=== PATIENT | male | born 1990 | race African-American/Black ===

== ENCOUNTER 2018-04-06 07:06 | Emergency (ER) | payer BC, SELFPAY ==
[2018-04-06 07:32] LABS: Bilirubin Negative (Negative); Blood, Urine Moderate (Negative); Clarity Clear (Clear); Glucose, Urine (Dipstick) Negative (Negative); Leukocyte Negative (Negative); Nitrite Negative (Negative); Protein, Urine (Dipstick) Negative (Neg-Trace); pH, Urine 5.5 (5.0-9.0)
[2018-04-06 07:34] LABS: Specific Gravity, Urine 1.026 (1.002-1.036)
[2018-04-06 07:39] LABS: Bacteria/HPF Rare-Few HPF (None Seen); Squamous Epithelial 0-3 HPF (0-3); WBC/HPF 0-3 HPF (0-3)
== END 2018-04-06 07:40 | disposition home or self-care (01) ==
LOC: MADERS 07:06
DX: N39.0 Urinary tract infection, site not specified (principal)
CPT/HCPCS: 81003; 81015; 87086; 99283

== ENCOUNTER 2019-10-06 13:37 | Emergency (ER) | payer BC ==
--- NOTE | 2019-10-06 14:17 | RAD ---
EXAM: 3 views of the left hand COMPARISON: None HISTORY: Hand pain FINDINGS: 3 views of the hand shows minimally displaced fractures of the distal max of the index fing er and middle finger metacarpals. There is also a minimally displaced transverse fracture of the midportion of the ring finger metacarpal. No degenerative changes are seen. No soft tissue swelling i s present. IMPRESSION: Index, middle, and ring finger metacarpal fractures
--- NOTE | 2019-10-06 14:18 | RAD ---
EXAM: 4 views of the left wrist HISTORY: Wrist pain COMPARISON: None FINDINGS: 4 views of the left wrist shows no evidence of acute fracture or dislocation. No soft tissu e swelling is seen. No degenerative changes are present. IMPRESSION: No evidence of acute osseous abnormality.
[2019-10-06] MEDS ORDERED: Ibuprofen 800 MG TAB ONE (14:45)
[2019-10-06] MEDS ORDERED: Acetaminophen 500 MG TAB ONE (14:45)
== END 2019-10-06 15:20 | disposition home or self-care (01) ==
LOC: MADERS 13:37
DX: S62.661A Nondisplaced fracture of distal phalanx of left index finger, initial encounter for closed fracture (principal); S62.663A Nondisplaced fracture of distal phalanx of left middle finger, initial encounter for closed fracture; S62.655A Nondisplaced fracture of middle phalanx of left ring finger, initial encounter for closed fracture; W23.0XXA Caught, crushed, jammed, or pinched between moving objects, initial encounter; Y92.812 Truck as the place of occurrence of the external cause; Y99.0 Civilian activity done for income or pay
CPT/HCPCS: 29125

== ENCOUNTER 2020-03-08 14:52 | Emergency (ER) | payer BC ==
--- NOTE | 2020-03-08 15:39 | RAD ---
CHEST 1 VIEW: HISTORY: Chest pain. FINDINGS: Heart size is normal. Monitor leads overlie the chest. No confluent pneumonia, overt edema, or pleu ral effusion. IMPRESSION: No significant acute intrathoracic disease. POS: [facility]
[2020-03-08 15:57] LABS: #Basophils 0.1 thou/uL (0.0-0.2); #Monocytes 0.9 thou/uL (0.11-0.59); #Neutrophils 8.7 thou/uL (1.40-6.50); %Basophils 0.5 % (0.0-1.0); %Eosinophils 0.3 % (0.0-10.0); %Lymphocytes 17.1 % (21.0-51.0); %Monocytes 7.8 % (0.0-10.0); %Neutrophils 74.3 % (42.0-75.0); Hemoglobin 13.2 g/dL (14.0-18.0); Mean Corpuscular HGB CONC 31.4 g/dL (32.0-36.0); Mean Corpuscular Hemoglobin 27.4 pg (27.0-31.0); Mean Corpuscular Volume 87.4 fL (78.0-98.0); Mean Platelet Volume 6.7 fL (7.4-10.4); Platelet Count 303 thou/uL (130-400); RBC Distribution Width 11.5 % (11.5-14.5); White Blood Cell (WBC) Count 11.7 thou/uL (4.8-10.8)
[2020-03-08 16:12] LABS: ALT (SGPT) 9 U/L (8-55); AST (SGOT) 12 U/L (5-34); Albumin 4.3 g/dL (3.5-5.0); Alkaline Phosphatase 57 U/L (40-110); Anion Gap 15 mmol/L (10-20); BUN (Urea Nitrogen) 15 mg/dL (8.9-20.6); Bilirubin, Total 2.8 mg/dL (0.2-1.2); CK (CPK) 93 U/L (30-200); Calc. Creatinine Clearance 0 mL/min (70-130); Calcium 9.1 mg/dL (7.8-10.44); Carbon Dioxide 24 mmol/L (22-29); Chloride 104 mmol/L (98-107); Estimated GFR-MDRD Greater than 90; Globulin 3.3 g/dL (2.4-3.5); Glucose 82 mg/dL (70-105); Potassium 3.5 mmol/L (3.5-5.1); Protein, Total 7.6 g/dL (6.0-8.3); Sodium 139 mmol/L (136-145)
== END 2020-03-08 16:34 | disposition home or self-care (01) ==
LOC: MADERS 14:52
DX: F41.9 Anxiety disorder, unspecified (principal); F43.0 Acute stress reaction; R07.89 Other chest pain; R63.0 Anorexia
CPT/HCPCS: 36415; 71045; 80053; 82550; 84484; 85025; 93005; 94760

== ENCOUNTER 2020-08-26 16:27 | Emergency (ER) | payer BC ==
--- NOTE | 2020-08-26 17:00 | CT ---
CT Stone Protocol 08/26/2020 4:36 PM HISTORY: Intermittent left lower quadrant pain with radiation of pain to groin. COMPARISON: None. Technique: Multiple contiguous axial CT images are obtained through the abdomen and pelvis without IV contrast. Coronal reformats are provided. FINDINGS: This examination is limited for the evaluation of solid organs and vascular structures due to the lac k of intravenous contrast. Lower Chest: Lung bases are clear. Liver: Grossly normal non-enhanced CT appearance. Gallbladder: Within normal limits for CT imaging. Pancreas: Grossly normal nonenhanced CT appearance. Spleen: Grossly normal nonenhanced CT appearance. Adrenals: Grossly normal nonenhanced CT appearance. Kidneys and ureters: No renal or ureteral calculi are seen bilaterally. Mild increased density is see n in the region of the medullary pyramids probably related to concentrated urine. There is no hydronephrosis. Urinary bladder: Urinary bladder has a normal CT appearance. Reproductive Organs: No pelvic masses. Lymph Nodes: No enlarged lymph nodes. Bowel: Normal caliber. Appendix: The appendix is normal in caliber. Peritoneum: Limited due to lack of intra-abdominal fat. However no definite free fluid, fluid collect ion, or enlarged lymph nodes are appreciated on this nonenhanced CT exam Retroperitoneum: within normal limits. Vessels: Abdominal aorta is normal in caliber.. Abdominal Wall: within normal limits. Bones: No lytic or sclerotic osseous lesions. There is heterogeneity in the region of the left scrotum. This may represent normal scrotal structure s, but this is difficult to further evaluate on this nonenhanced CT scan exam. Follow-up testicular ultrasound may be helpful. IMPRESSION: 1. Heterogeneity in the region of the left scrotum. This could potentially represent normal structure s, but given heterogeneity and difficulty in delineation of structures on this nonenhanced CT exam, testicular ultrasound is recommended. 2. No renal or ureteral calculi are seen bilaterally.
[2020-08-26 17:03] LABS: #Basophils 0.1 thou/uL (0.0-0.2); #Lymphocytes 1.6 thou/uL (1.20-3.40); #Monocytes 0.7 thou/uL (0.11-0.59); #Neutrophils 13.9 thou/uL (1.40-6.50); %Basophils 0.3 % (0.0-1.0); %Eosinophils 0.2 % (0.0-10.0); %Monocytes 4.2 % (0.0-10.0); %Neutrophils 85.3 % (42.0-75.0); Hemoglobin 13.6 g/dL (14.0-18.0); Mean Corpuscular HGB CONC 32.4 g/dL (32.0-36.0); Mean Corpuscular Hemoglobin 28.6 pg (27.0-31.0); Mean Corpuscular Volume 88.3 fL (78.0-98.0); Mean Platelet Volume 6.8 fL (7.4-10.4); Platelet Count 258 thou/uL (130-400); RBC Distribution Width 11.2 % (11.5-14.5); Red Blood Cell (RBC) Count 4.77 mill/uL (4.70-6.10); White Blood Cell (WBC) Count 16.4 thou/uL (4.8-10.8)
[2020-08-26 17:16] LABS: ALT (SGPT) 13 U/L (8-55); AST (SGOT) 14 U/L (5-34); Albumin 4.1 g/dL (3.5-5.0); Alkaline Phosphatase 56 U/L (40-110); Anion Gap 15 mmol/L (10-20); BUN (Urea Nitrogen) 17 mg/dL (8.9-20.6); Bilirubin, Total 2.5 mg/dL (0.2-1.2); Calc. Creatinine Clearance 0 mL/min (70-130); Calcium 8.8 mg/dL (7.8-10.44); Carbon Dioxide 22 mmol/L (22-29); Chloride 106 mmol/L (98-107); Globulin 3.2 g/dL (2.4-3.5); Glucose 114 mg/dL (70-105); Potassium 4.3 mmol/L (3.5-5.1); Protein, Total 7.3 g/dL (6.0-8.3); Sodium 139 mmol/L (136-145)
[2020-08-26] MEDS ORDERED: Ketorolac Tromethamine 30 MG/ML VIAL ONE (17:56)
== END 2020-08-26 18:10 | disposition short-term general hospital (02) ==
LOC: MADERS 16:27
DX: N45.2 Orchitis (principal)
CPT/HCPCS: 36415; 74176; 80053; 85025; 96374; J1885